=== PATIENT | female | born 2000 | race Caucasian/White ===

== ENCOUNTER → 2022-11-14 09:08 | Outpatient (CLI) | payer OTHER, SELFPAY ==
--- NOTE | ~2022-11-14 | XR_ITS ---
AP and oblique views of the left ribs Clinical History: Pain Findings: Questionable nondisplaced fracture at the anterolateral left sixth rib. Lungs are clear, wi thout focal consolidation or pleural effusion. Cardiomediastinal contour is within normal limits. Sof t tissues are unremarkable. Impression: Questionable nondisplaced fracture anterolateral left sixth rib. Correlate for point tenderness. Reviewed, dictated and finalized at [facility]. Impression: Questionable nondisplaced fracture anterolateral left sixth rib. Correlate for point tenderness.
== END ==
PROVIDERS: PCP Nurse Practitioner Family; Visit Provider Nurse Practitioner Family
DX: R07.81 Pleurodynia (principal)
CPT/HCPCS: 71100